=== PATIENT | female | born 1940 | race Caucasian/White ===

== ENCOUNTER → 2016-08-09 | Day surgery (SDC) | payer MEDICARE, BC ==
[~2016-08-09] MED LIST: Lidocaine 2% with EPINEPHrine 1:100,000 20 ML MDV INJECT ONE; Lidocaine 2% with EPINEPHrine 1:100,000 20 ML MDV ONE; Sodium Bicarbonate 8.4% 50 MEQ/50 ML SDV ONE
[2016-08-09 11:36] VITALS: BP 139/61
--- NOTE | 2016-08-10 07:44 | OR ---
DATE OF OPERATION: 08/09/2016 PREOPERATIVE DIAGNOSIS: 1. INCOMPLETE EXCISION, LEFT FRONTAL BASAL CELL CARCINOMA. 2. VASCULAR LESIONS, RIGHT NASOLABIAL FOLD AND LEFT SUPRACLAVICULAR AREA. 3. KERATOTIC LESIONS X3, RIGHT AND LEFT SUPRACLAVICULAR SPACE. POSTOPERATIVE DIAGNOSIS: 1. INCOMPLETE EXCISION, LEFT FRONTAL BASAL CELL CARCINOMA. 2. VASCULAR LESIONS, RIGHT NASOLABIAL FOLD AND LEFT SUPRACLAVICULAR AREA. 3. KERATOTIC LESIONS X3, RIGHT AND LEFT SUPRACLAVICULAR SPACE. SURGEON: Shane Rios MD PROCEDURE: 1. WIDE EXCISION, FOREHEAD LESION. 2. EXCISION, VASCULAR LESIONS. 3. SHAVE EXCISION, KERATOTIC LESIONS. DESCRIPTION OF PROCEDURE: This lady has had a previous biopsy of left frontal lesion which was a basal cell carcinoma with incomplete excision. She was taken to the operating suite and all areas were carefully prepped with a Betadine solution and then draped. The region of the left forehead measured 1.3 cm in total diameter. This was hyperemic with a prominent degree of vascularity and raised. The margin was carefully outlined with a peripheral 2 mm additional margin of excision. Xylocaine 2% with epinephrine buffered solution was carefully used and the lesion was excised. This was brought down to the muscularis. Following this, the subcutaneous tissues were advanced and closed in a two-layer fashion with 5-0 Vicryl and 5-0 Prolene suture. A dressing was applied. Following this, the right nasolabial lesion measured 2 mm in diameter. It was vascular, somewhat prominently pigmented. An additional vascular lesion was found in the region of the left supraclavicular space. This measured 4 mm in diameter. It was raised, vascular in appearance with some pigmentation. These lesions were carefully infiltrated with Xylocaine 2% with epinephrine buffered solution and then excised. A single suture was placed in the left supraclavicular space. Dermabond was used for the lesion closure on the right side. Three additional keratotic areas were carefully noted. These were found in the left supraclavicular spaces. Each of these measured approximately 5 mm in diameter, being raised, irregular and typical keratotic in appearance. These were shaved, excised. The additional lesion in the right supraclavicular space was also shaved, excised with no complications. Cauterization of the base was then performed. Dressings were all applied. The left forehead lesion was carefully marked along the lateral margin with a single suture. The patient will be seen in followup and the sutures will be removed in approximately 7-[address] Longoria's kind referral. CATHY/JEANNE /[id number]
== END | disposition home or self-care (01) ==
LOC: CC.SDS 09:24
DX: C44.319 Basal cell carcinoma of skin of other parts of face (principal); D18.01 Hemangioma of skin and subcutaneous tissue; D18.09 Hemangioma of other sites; L82.1 Other seborrheic keratosis; L57.0 Actinic keratosis; Z88.0 Allergy status to penicillin; Z88.8 Allergy status to other drugs, medicaments and biological substances
CPT/HCPCS: 88305

== ENCOUNTER 2018-08-05 09:15 | Emergency (ER) | payer MEDICARE, BC ==
[2018-08-05 09:20] VITALS: BP 164/57
[2018-08-05] MEDS ORDERED: methylPREDNISolone Sodium Succinate 125 MG/2 ML SDV IM STA (09:27)
--- NOTE | 2018-08-05 10:30 | EDM.PDOC ---
ED HPI GENERAL MEDICAL PROBLEM - General Chief Complaint: Respiratory Problem Stated Complaint: difficulty taking deep breath Time Seen by Provider: 08/05/18 09:39 Source of Information: Reports: Patient History Limitations: Reports: No Limitations - History of Present Illness INITIAL COMMENTS - FREE TEXT/NARRATIVE: Trish is a 77 year old female who presents to the ED with c/o chest tightness. SHe was seen in clinic yesterday for an allergic reaction to Bactrim. Was recently started on Bactrim and clindamycin for an infected cat bite. SHe has a rash to BUE and chest. She feels the rash has maybe slightly worsened. SHe reports this morning when she woke up her chest felt a little tight and she felt like she couldn't take a deep breath. Was told in clinic to come in if experiencing any shortness of breath, prompting her ED visit. O2 sats at 100%. Patient appears in no respiratory distress. Denies any tongue/throat/lip swelling. Reports she knows she is a bit anxious and then it makes it even more difficult to breathe. Denies any cough or chest pain. She offers no other complaints. Onset: Today Duration: Intermittent Location: Reports: Chest (tightness) Associated Symptoms: Reports: Shortness of Breath. Denies: Confusion, Chest Pain, Cough, cough w sputum, Diaphoresis, Fever/Chills, Headaches, Loss of Appetite, Malaise, Nausea/Vomiting, Rash, Seizure, Syncope, Weakness - Related Data Allergies Allergy/AdvReac Type Severity Reaction Status Date / Time Penicillins Allergy Cannot Verified 08/05/18 09:20 Remember regadenoson [From Lexiscan] Allergy Other Verified 08/05/18 09:20 Sulfa (Sulfonamide Allergy Rash Verified 08/05/18 10:12 Antibiotics) Home Meds: Home Meds Aspirin [Ecotrin] 81 mg PO DAILY 04/25/16 [History] [place] 1,500 mg PO DAILY 08/08/16 [History] Ascorbate Calcium [Vitamin C] 500 - 1,000 mg PO DAILY 08/08/16 [History] Cholecalciferol (Vitamin D3) [Vitamin D3] 10,000 unit PO DAILY 08/08/16 [History ] Garlic 1 each PO DAILY 08/08/16 [History] Herbal Laxative 3 tab PO DAILY 08/08/16 [History] Lutein 20 mg PO Q48H 08/08/16 [History] MV-Min/Vit C/Glut/Analisa Ac/HC124 [Airborne Tablet Chewable] 1 each PO DAILY PRN [History] Past Medical History - Past Health History Medical/Surgical History: Denies Medical/Surgical History - Past Surgical History GI Surgical History: Reports: Appendectomy Social & Family History - Family History Family Medical History: Noncontributory - Tobacco Use Smoking Status *Q: Never Smoker - Caffeine Use Caffeine Use: Reports: Coffee - Recreational Drug Use Recreational Drug Use: No ED ROS GENERAL - Review of Systems Review Of Systems: ROS reveals no pertinent complaints other than HPI. ED EXAM, GENERAL - Physical Exam Exam: See Below Exam Limited By: No Limitations General Appearance: Alert, WD/WN, No Apparent Distress Nose: Normal Inspection, Normal Mucosa, No Blood Throat/Mouth: Normal Inspection, Normal Lips, Normal Teeth, Normal Gums, Normal Oropharynx, Normal Voice, No Airway Compromise Head: Atraumatic, Normocephalic Neck: Normal Inspection, Supple, Non-Tender, Full Range of Motion Respiratory/Chest: No Respiratory Distress, Lungs Clear, Normal Breath Sounds, No Accessory Muscle Use, Chest Non-Tender Cardiovascular: Normal Peripheral Pulses, Regular Rate, Rhythm, No Edema, No Gallop, No JVD, No Murmur, No Rub Skin Exam: Rash (maculopapular rash to BUE, chest, and neck), Wound/Incision ( cat bite to left lower leg, redness seems to be improving to left ankle, area outlined) Course - Vital Signs Last Recorded V/S: Last Vital Signs Temp 97.4 F 08/05/18 09:18 Pulse 74 08/05/18 09:18 Resp 20 08/05/18 09:18 BP 164/57 H 08/05/18 09:18 Pulse Ox 100 08/05/18 09:18 - Orders/Labs/Meds Meds: Medications Discontinued Medications Generic Name Dose Route Start Last Admin Trade Name Freq PRN Reason Stop Dose Admin Methylprednisolone Sodium Succinate 125 mg 08/05/18 09:27 08/05/18 09:39 Solu-Medrol IM 08/05/18 09:28 125 mg NOW STA Administration Departure - Departure Time of Disposition: 10:27 Disposition: Home, Self-Care 01 Condition: Good Clinical Impression: Allergic reaction caused by a drug Qualifiers: Encounter type: subsequent encounter Qualified Code(s): T78.40XD - Allergy, unspecified, subsequent encounter - Discharge Information *PRESCRIPTION DRUG MONITORING PROGRAM REVIEWED*: Not Applicable *COPY OF PRESCRIPTION DRUG MONITORING REPORT IN PATIENT AMADNA: Not Applicable Instructions: Allergies, Adult, [id number] Referrals: Travon Longoria MD [Primary Care Provider] - Forms: ED Department Discharge Additional Instructions: - Zyrtec or Claritin daily - Continue eye lubricating drops - Rest until feeling better - Continue antibiotics as prescribed - Follow up if symptoms worsen or do not improve over the next few days
== END 2018-08-05 10:35 | disposition home or self-care (01) ==
LOC: CC.ED 09:15
DX: R07.89 Other chest pain (principal); T36.8X5D Adverse effect of other systemic antibiotics, subsequent encounter; Z79.899 Other long term (current) drug therapy; Z88.0 Allergy status to penicillin; Z88.2 Allergy status to sulfonamides
CPT/HCPCS: 96372; 99282; J2930; 99283

== ENCOUNTER → 2021-06-11 | Day surgery (SDC) | payer MEDICARE, BC ==
[~2021-06-11] MED LIST changes: +Lactated Ringers 1,000 ML IV SCH; -Lidocaine 2% with EPINEPHrine 1:100,000 20 ML MDV INJECT ONE; -Lidocaine 2% with EPINEPHrine 1:100,000 20 ML MDV ONE; +Propofol 200 MG/20 ML SDV ONE; -Sodium Bicarbonate 8.4% 50 MEQ/50 ML SDV ONE; +fentaNYL 100 MCG/2 ML SDV ONE
[2021-06-11 08:38] VITALS: BP 131/56; PULSE 66
== END ==
LOC: CC.SDS 06:56
PROVIDERS: ATTEND Family Medicine
DX: Z12.11 Encounter for screening for malignant neoplasm of colon (principal); K63.89 Other specified diseases of intestine; K57.30 Diverticulosis of large intestine without perforation or abscess without bleeding; J44.9 Chronic obstructive pulmonary disease, unspecified; M06.9 Rheumatoid arthritis, unspecified; E78.5 Hyperlipidemia, unspecified; E66.9 Obesity, unspecified; Z79.899 Other long term (current) drug therapy; Z90.49 Acquired absence of other specified parts of digestive tract; Z86.010 Personal history of colon polyps
CPT/HCPCS: 00812; J2704; J3010; J7120

== ENCOUNTER 2023-03-09 02:40 | Emergency (ER) | payer MEDICARE, BC ==
[2023-03-09] MEDS ORDERED: Sodium Chloride 0.9% 10 ML Syringe FLUSH PRN (02:46)
[2023-03-09 03:05] LABS: BASOPHILS ABSOLUTE AUTO 0.09 10^3/uL (0.00-0.50); BASOPHILS PERCENT AUTO 1.2 % (0-1); EOSINOPHILS ABSOLUTE AUTO 0.48 10^3/uL (0.00-1.50); EOSINOPHILS PERCENT AUTO 6.4 % (0-6); HEMOGLOBIN 12.9 g/dL (12.0-16.0); IMMATURE GRAN ABSOLUTE AUTO 0.03 10^3/uL (0.00-0.49); IMMATURE GRAN PERCENT AUTO 0.4 % (0.0-4.9); LYMPHOCYTES ABSOLUTE AUTO 2.15 10^3/uL (0.60-5.00); LYMPHOCYTES PERCENT AUTO 28.6 % (24-44); MEAN CORPUSCULAR HEMOGLOBIN 31.9 pg (27.0-32.0); MEAN CORPUSCULAR HGB CONC 33.1 g/dL (32.0-36.0); MEAN CORPUSCULAR VOLUME 96.5 fL (83.0-97.0); MONOCYTES ABSOLUTE AUTO 0.68 10^3/uL (0.00-1.50); NEUTROPHILS PERCENT AUTO 54.4 % (41-71); PLATELET COUNT,PLT 286 10^3/uL (150-400); RED BLOOD CELL COUNT 4.04 x10^6/uL (4.00-5.50); WHITE BLOOD CELL COUNT,WBC 7.5 10^3/uL (4.0-11.0)
[2023-03-09 03:17] LABS: ALBUMIN 3.2 g/dL (3.4-5.0); BILIRUBIN TOTAL 0.3 mg/dL (0.0-1.0); CALCIUM 8.6 mg/dL (8.4-10.1); EST CRCL DRUG DOSING (CG) 35.49 mL/min; POTASSIUM,K 3.8 mEq/L (3.5-5.0); PROTEIN TOTAL,TP 7.2 g/dL (6.4-8.2)
[2023-03-09 03:35] LABS: APPEARANCE,URINE CLEAR (CLEAR); BILIRUBIN,URINE NEGATIVE (NEGATIVE); COLOR,URINE YELLOW (YELLOW); GLUCOSE,URINE NEGATIVE (NEGATIVE); KETONES,URINE NEGATIVE (NEGATIVE); LEUKOCYTE ESTERASE,URINE TRACE (NEGATIVE); NITRITE,URINE NEGATIVE (NEGATIVE); OCCULT BLOOD,URINE NEGATIVE (NEGATIVE); PH,URINE 8.5 (4.5-8.0); PROTEIN,URINE NEGATIVE (NEGATIVE); UROBILINOGEN,URINE 0.2 EU/dL (0.2-1.0)
[2023-03-09 03:53] LABS: RBC,URINE NOT SEEN /HPF (0-5); WBC,URINE NOT SEEN /HPF (0-5)
[2023-03-09 04:24] VITALS: BP 125/67; PULSE 67
[2023-03-09] MEDS: Cefdinir 300 MG Cap PO ONE (04:29)
== END 2023-03-09 04:38 | disposition home or self-care (01) ==
LOC: CC.ED 02:40
DX: R55 Syncope and collapse (principal); J01.00 Acute maxillary sinusitis, unspecified; Z20.822 Contact with and (suspected) exposure to COVID-19; Z90.49 Acquired absence of other specified parts of digestive tract; Z88.0 Allergy status to penicillin; Z88.2 Allergy status to sulfonamides
CPT/HCPCS: 36415; 70450; 71045; 80053; 81001; 84484; 85025; 87804; 93005; 99285; A9270-GY; U0002